=== PATIENT | female | born 1990 | race Caucasian/White ===

== ENCOUNTER 2016-12-18 08:12 | Emergency (ER) | payer OTHER ==
[2016-12-18 08:19] VITALS: BP 130/76; PULSE 81; RESP 20; TEMP 100.2
--- NOTE | 2016-12-18 08:34 | ED ---
General Adult HPI - General Chief complaint: ENT Stated complaint: Cough & pressure in head Time Seen by Provider: 12/18/16 08:18 Source: patient, RN notes reviewed Mode of arrival: ambulatory Limitations: no limitations - History of Present Illness Initial comments: Patient 25-year-old female who presents emergency room today with chief complaint of increased rhinorrhea and sore throat over the last 2 days. She does admit that hurts when she swallows. Does admit to feeling some pressure in her ears. Patient states that she has had cough production. She states she' s tried some [id number]-[id number] medications with her symptoms. She denies any other complaints. Patient denies any recent fever, chills, shortness of breath, chest pain, back pain, abdominal pain, nausea or vomiting, numbness or tingling , dysuria or hematuria, constipation or diarrhea, headaches or visual changes, or any other complaints. - Related Data Previous Rx's Medication Instructions Recorded Amoxicillin/Potassium Clav 1 each PO Q12HR #20 tab 12/18/16 [Augmentin 875-125 Tablet] Fluticasone Propionate [Flonase 1 - 2 spray EA NOSTRIL DAILY 5 Days 12/18/16 Allergy Relief] Loratadine [Claritin] 10 mg PO DAILY 20 Days 12/18/16 Allergies Allergy/AdvReac Type Severity Reaction Status Date / Time Sulfa (Sulfonamide AdvReac Swelling Verified 12/18/16 08:17 Antibiotics) Review of Systems ROS Statement: Those systems with pertinent positive or pertinent negative responses have been documented in the HPI. ROS Other: All systems not noted in ROS Statement are negative. Past Medical History Past Medical History: No Reported History History of Any Multi-Drug Resistant Organisms: None Reported Additional Past Surgical History / Comment(s): pe tubes Past Psychological History: Anxiety Smoking Status: Current some day smoker Past Alcohol Use History: Occasional Past Drug Use History: None Reported General Exam - General Exam Comments Initial Comments: General: The patient is awake and alert, in no distress, and does not appear acutely ill. Eye: Pupils are equal, round and reactive to light, extra-ocular movements are intact. No nystagmus. There is normal conjunctiva bilaterally. No signs of icterus. Ears, nose, mouth and throat: There are moist mucous membranes and no oral lesions. She does have tenderness over the frontal and maxillary sinuses. TMs are clear bilaterally. Neck: The neck is supple, there is no tenderness or JVD. Cardiovascular: There is a regular rate and rhythm. No murmur, rub or gallop is appreciated. Respiratory: Lungs are clear to auscultation, respirations are non-labored, breath sounds are equal. No wheezes, stridor, rales, or rhonchi. Musculoskeletal: Normal ROM, no tenderness. Strength 5/5. Sensation intact. Pulses equal bilaterally 2+. Neurological: A&O x 3. CN II-XII intact, There are no obvious motor or sensory deficits. Coordination appears grossly intact. Speech is normal. Skin: Skin is warm and dry and no rashes or lesions are noted. Psychiatric: Cooperative, appropriate mood & affect, normal judgment. Limitations: no limitations Course Vital Signs 12/18/16 08:14 Temperature 100.2 F H Pulse Rate 81 Respiratory 20 Rate Blood Pressure 130/76 O2 Sat by Pulse 98 Oximetry Disposition Clinical Impression: Acute sinusitis Disposition: HOME SELF-CARE Condition: Good Instructions: Sinusitis (ED) Additional Instructions: Please use medication as discussed. Please follow-up with family doctor in the next 2 days of symptoms have not improved. Please return to emergency room if the symptoms increase or worsen or for any other concerns. Prescriptions: Amoxicillin/Potassium Clav [Augmentin 875-125 Tablet] 1 each PO Q12HR #20 tab Fluticasone Propionate [Flonase Allergy Relief] 1 - 2 spray EA NOSTRIL DAILY 5 Days Loratadine [Claritin] 10 mg PO DAILY 20 Days Referrals: Julito Miranda MD [Primary Care Provider] - 1-2 days Time of Disposition: 08:32
== END 2016-12-18 08:48 | disposition home or self-care (01) ==
LOC: EC 08:12
DX: J01.90 Acute sinusitis, unspecified (principal); F17.200 Nicotine dependence, unspecified, uncomplicated; Z88.2 Allergy status to sulfonamides
CPT/HCPCS: 99283

== ENCOUNTER 2019-03-26 09:58 | Emergency (ER) | payer BC, OTHER ==
[2019-03-26 10:07] VITALS: BP 120/73; PULSE 74; RESP 18; TEMP 97.8
[2019-03-26] MEDS ORDERED: ACETAMINOPHEN TAB 325 MG TAB PO STA (10:45)
--- NOTE | 2019-03-26 10:53 | ED ---
General Adult HPI - General Source: patient, RN notes reviewed, old records reviewed Mode of arrival: ambulatory Limitations: no limitations <Yoandy Strickland - Last Filed: 03/26/19 10:58> <Karolyn Hollingsworthah Rhys - Last Filed: 03/26/19 23:35> - General Chief complaint: Fall Stated complaint: fall/head injury Time Seen by Provider: 03/26/19 10:11 - History of Present Illness Initial comments: 28-year-old female patient with no pertinent past medical history presents to ED for chief complaint fall last night. Patient put that last night as she was walking into her home she stumbled forward and hit the left side of her head on a door frame. Denies any trauma to face or eye. Patient denies falling to ground. Patient has a blood thinners. Patient denies a loss of consciousness. Patient felt fine after the initial trauma. Went to sleep. Patient reports that she woke up today at a mild left-sided temporal headache. Denies any nausea vomiting. Denies any changes in vision. Denies any upper or lower extremity weakness. Loss of consciousness. Denies any neck pain. Reports that this headache is mild, denies worse headache of life. Patient states that she called into work and must come in order to receive a work note. Systemic: Pt denies fatigue, fever/chills, rash. Pt denies weakness, night sweats, weight loss. Neuro: Pt denies visual disturbances, syncope or pre-syncope. HEENT: Pt denies ocular discharge or irritation, otalgia, rhinorrhea, pharyngitis or notable lymphadenopathy. Cardiopulmonary: Pt denies chest pain, SOB, heart palpitations, dyspnea on exertion. Abdominal/GI: Pt denies abdominal pain, n/v/d. : Pt denies dysuria, burning w/ urination, frequency/urgency. Denies new onset urinary or bowel incontinence. MSK: Pt denies myalgia, loss of strength or function in extremities. Neuro: Pt denies new onset weakness, paresthesias. (Yoandy Strickland) - Related Data Previous Rx's Medication Instructions Recorded Amoxic-Pot Clav 875-125Mg 1 tab PO Q12HR #20 tablet 03/17/17 [Augmentin 875-125] Allergies Allergy/AdvReac Type Severity Reaction Status Date / Time Sulfa (Sulfonamide AdvReac Swelling Verified 03/17/17 14:15 Antibiotics) Review of Systems ROS Other: All systems not noted in ROS Statement are negative. <Yoandy Strickland - Last Filed: 03/26/19 10:58> ROS Other: All systems not noted in ROS Statement are negative. <Edna Hollingsworth - Last Filed: 03/26/19 23:35> ROS Statement: Those systems with pertinent positive or pertinent negative responses have been documented in the HPI. Past Medical History Past Medical History: No Reported History History of Any Multi-Drug Resistant Organisms: None Reported Additional Past Surgical History / Comment(s): tubes Past Psychological History: Anxiety Smoking Status: Current some day smoker Past Alcohol Use History: Occasional Past Drug Use History: None Reported <Yoandy Strickland - Last Filed: 03/26/19 10:58> General Exam Limitations: no limitations <Yoandy Strickland - Last Filed: 03/26/19 10:58> - General Exam Comments Initial Comments: Constitutional: NAD, AOX3, Pt has pleasant affect. HEENT: NC/AT, trachea midline, neck supple, no lymphadenopathy. Posterior pharynx non erythematous, without exudates. External ears appear normal, without discharge. Mucous membranes moist. Right pupil irregular, reactive to light, left pupil PERRLA, EOM intact. IOP 25 bilaterally. There is no scleral icterus. No pallor noted. Cardiopulmonary: RRR, no murmurs, rubs or gallops, no JVD noted. Lungs CTAB in anterior and posterior garcia. No peripheral edema. Abdominal exam: Abdomen soft and non-distended. Abdomen non-tender to palpation in all 4 quadrants. Bowel sounds active in LLQ. No hepatosplenomegaly. No ecchymosis Neuro: CN II-XII intact. No nuchal rigidity. No raccon eyes, no ibarra sign, no hemotympanum. No cervical spinal tenderness. No hematoma or skin changes on skull. MSK: No posterior calf tenderness bilaterally, homans sign negative bilaterally. Posterior tibialis and radial pulse +2 bilaterally. Sensation intact in upper and lower extremities. Full active ROM in upper and lower extremities, 5/5 stregnth. (Yoandy Strickland) Course Vital Signs 03/26/19 10:02 Temperature 97.8 F Pulse Rate 74 Respiratory 18 Rate Blood Pressure 120/73 O2 Sat by Pulse 97 Oximetry Medical Decision Making <Yoandy Strickland - Last Filed: 03/26/19 10:58> <Edna Hollingsworth - Last Filed: 03/26/19 23:35> - Medical Decision Making 28-year-old female patient presents to ED with chief complaint of minor trauma to head yesterday, patient points that she has a mild left temporal headache today. Patient states that she called into work and must receive a work note her to return. Denies any chance of being . Patient vital signs stab le, afebrile. Physical exam displayed: Right pupil irregular, reactive to light, left pupil PERRLA, EOM intact. IOP 25 bilaterally. CN II-XII intact. No nuchal rigidity. No raccon eyes, no ibarra sign, no hemotympanum. No cervical spinal tenderness. No hematoma or skin changes on skull. Patient reports that this irregular pupil is normal for her and is always been this way. She reports that she is follow-up with senior android software engineer on multiple occasions and does wear glasses. Offered advanced imaging including CAT scan patient declined. Intraocular pressure revealed bilateral pressure of 25. Patient denies any changes in vision. States the vision is at baseline. Denies any pain in eye. Patient will be discharged, will follow up with primary care provider will be advised to follow-up with senior android software engineer for a mildly elevated intraocular pressure. Case discussed with Dr. Hollingsworth. (Yoandy Strickland) I was available for consultation in the emergency department. The history and physical exam were done by the midlevel provider. I was consulted for this patients care. I reviewed the case with the midlevel provider and based on their presentation of the patient, I agree with the assessment, medical decision making and plan of care as documented. Chart was dictated using App[employer]entive dictation software. Attempts were made to correct any dictation errors however some typographical errors may persist. (Edna Hollingsworth) Disposition Is patient prescribed a controlled substance at d/c from ED?: No <Yoandy Strickland - Last Filed: 03/26/19 10:58> <Edna Hollingsworth - Last Filed: 03/26/19 23:35> Clinical Impression: Fall Disposition: HOME SELF-CARE Condition: Stable Instructions (If sedation given, give patient instructions): Fall Prevention (ED) Additional Instructions: Follow-up with primary care provider tomorrow. Follow with senior android software engineer today. Return to ER if condition worsens in any way. Referrals: None,Stated [Primary Care Provider] - 1-2 days Preethi Larry MD [STAFF PHYSICIAN] - 1-2 days
== END 2019-03-26 11:07 | disposition home or self-care (01) ==
LOC: EC 09:58
DX: S09.90XA Unspecified injury of head, initial encounter (principal); H21.561 Pupillary abnormality, right eye; F17.200 Nicotine dependence, unspecified, uncomplicated; Z88.2 Allergy status to sulfonamides; Z53.20 Procedure and treatment not carried out because of patient's decision for unspecified reasons; W01.0XXA Fall on same level from slipping, tripping and stumbling without subsequent striking against object, initial encounter; Y93.01 Activity, walking, marching and hiking; Y92.009 Unspecified place in unspecified non-institutional (private) residence as the place of occurrence of the external cause
CPT/HCPCS: 99283

== ENCOUNTER 2020-06-16 08:51 | Emergency (ER) | payer BC, OTHER ==
[2020-06-16 08:54] VITALS: BP 120/68; PULSE 72; RESP 17; TEMP 98.6
--- NOTE | 2020-06-16 09:15 | ED ---
General Adult HPI - General Chief complaint: Back Pain/Injury Stated complaint: lower back pain Time Seen by Provider: 06/16/20 08:59 Source: patient, RN notes reviewed Mode of arrival: ambulatory Limitations: no limitations - History of Present Illness Initial comments: Patient is a pleasant 29-year-old female presenting to the emergency Department with low back discomfort. Onset of symptoms was yesterday morning. Symptoms progressed throughout the day. Symptoms are still present. Patient states symptoms are worse when going from sitting to standing position. Patient does have history of similar symptoms once around a year ago. Discomfort does radiate towards the left hip. Discomfort is lower back. No weakness. No loss of sensation. No incontinence or retention of bowel or bladder products. Patient denies any possible , states 0% chance. Patient denies urinary symptoms. - Related Data Previous Rx's Medication Instructions Recorded Amoxic-Pot Clav 875-125Mg 1 tab PO Q12HR #20 tablet 03/17/17 [Augmentin 875-125] Cyclobenzaprine [Flexeril] 10 mg PO TID PRN #12 tablet 06/16/20 predniSONE [Deltasone] 20 mg PO BID #10 tab 06/16/20 Allergies Allergy/AdvReac Type Severity Reaction Status Date / Time Sulfa (Sulfonamide AdvReac Swelling Verified 06/16/20 08:54 Antibiotics) Review of Systems ROS Statement: Those systems with pertinent positive or pertinent negative responses have been documented in the HPI. ROS Other: All systems not noted in ROS Statement are negative. Constitutional: Denies: fever Eyes: Denies: eye pain ENT: Denies: ear pain Respiratory: Denies: cough Cardiovascular: Denies: chest pain Endocrine: Denies: fatigue Gastrointestinal: Denies: abdominal pain, nausea, vomiting Genitourinary: Denies: dysuria Musculoskeletal: Reports: as per HPI, back pain Skin: Denies: rash Neurological: Denies: weakness, numbness Past Medical History Past Medical History: No Reported History History of Any Multi-Drug Resistant Organisms: None Reported Past Surgical History: Ear Surgery Additional Past Surgical History / Comment(s): tubes Past Psychological History: Anxiety Smoking Status: Current every day smoker Past Alcohol Use History: Occasional Past Drug Use History: None Reported General Exam Limitations: no limitations General appearance: alert, in no apparent distress, obese Eye exam: Present: normal appearance Neck exam: Present: normal inspection. Absent: tenderness Respiratory exam: Present: normal lung sounds bilaterally Cardiovascular Exam: Present: regular rate, normal rhythm Expanded Peripheral pulses: 2+: Dorsalis Pedis (R), Dorsalis Pedis (L) GI/Abdominal exam: Present: soft. Absent: distended, tenderness, pulsatile mass Extremities exam: Present: normal inspection Back exam: Present: tenderness (Mild tenderness lower lumbar spine), other (Straight leg raise positive on the left at 40) Neurological exam: Present: alert. Absent: motor sensory deficit Psychiatric exam: Present: normal affect, normal mood Skin exam: Present: normal color Course Vital Signs 06/16/20 08:52 Temperature 98.6 F Pulse Rate 72 Respiratory 17 Rate Blood Pressure 120/68 O2 Sat by Pulse 100 Oximetry Medical Decision Making - Medical Decision Making X-rays thought to be of limited benefit. Patient was offered however refuses. Disposition Clinical Impression: Low back pain Disposition: HOME SELF-CARE Condition: Stable Instructions (If sedation given, give patient instructions): Acute Low Back Pain (ED) Additional Instructions: Please do follow-up with primary care physician in the next couple days for recheck, number provided. Prescription for steroids and muscle relaxers have been sent to your pharmacy, [facility] on . Continue Motrin. Return for weakness, loss of control of bowel or bladder, worsening symptoms or other concerns or fevers. Prescriptions: predniSONE [Deltasone] 20 mg PO BID #10 tab Cyclobenzaprine [Flexeril] 10 mg PO TID PRN #12 tablet PRN Reason: Pain Is patient prescribed a controlled substance at d/c from ED?: No Referrals: Olga Minaya MD [STAFF PHYSICIAN] - 1-2 days Cheryl Cheatham MD [STAFF PHYSICIAN] - 1-2 days Time of Disposition: 09:14
== END 2020-06-16 09:24 | disposition home or self-care (01) ==
LOC: EC 08:51
DX: M54.5 Low back pain (principal); F17.200 Nicotine dependence, unspecified, uncomplicated

== ENCOUNTER 2022-02-08 07:38 | Emergency (ER) | payer OTHER ==
[2022-02-08 07:42] VITALS: TEMP 97.9
[2022-02-08] MEDS ORDERED: diphenhydrAMINE 50 MG/ML 1 ML VIAL IVP STA (08:35)
[2022-02-08] MEDS ORDERED: METOCLOPRAMIDE 5 MG/ML 2 ML VIAL IVP STA (08:35)
[2022-02-08] MEDS ORDERED: KETOROLAC 15 MG/ML 1 ML VIAL IVP STA (08:36)
--- NOTE | 2022-02-08 08:44 | ED ---
Headache HPI - General Chief Complaint: Headache Stated Complaint: eye pain, headaches Time Seen by Provider: 02/08/22 07:59 Mode of arrival: ambulatory Limitations: no limitations - History of Present Illness Initial Comments: This patient is a 31-year-old woman who presents with complaint of right sided retro-orbital headache. The patient states that this is been going on for a couple of months now. The patient states that she did recently see an fireworks inspector and was told that her optic nerve to the right eye is "pinched." The patient states she has not noted any change to her vision. 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 She has not noticed acute change. Patient denies neurologic symptoms. No fever or chills. No neck stiffness or pain. She denies any neurologic symptoms. The patient states she is currently awaiting an appointment with a neurologist, but that overnight the pain was a bit worse so she presents here to have some relief. MD Complaint: headache Onset/Timin -: month(s) Onset Description: gradual Location: right, retro-orbital Severity: moderate, severe Quality: aching Consistency: constant Improves With: nothing Worsens With: none Treatments Prior to Arrival: none - Related Data Home Medications Medication Instructions Recorded Confirmed Escitalopram [Lexapro] 10 mg PO DAILY 02/08/22 02/08/22 Rosuvastatin Calcium 5 mg PO DAILY 02/08/22 02/08/22 Allergies Allergy/AdvReac Type Severity Reaction Status Date / Time Sulfa (Sulfonamide AdvReac Swelling Verified 02/08/22 11:28 Antibiotics) Review of Systems ROS Statement: Those systems with pertinent positive or pertinent negative responses have been documented in the HPI. ROS Other: All systems not noted in ROS Statement are negative. Constitutional: Denies: fever, chills, weakness Eyes: Reports: as per HPI, eye pain. Denies: vision change ENT: Denies: ear pain, throat pain, hearing loss, epistaxis, congestion Respiratory: Denies: cough, dyspnea Cardiovascular: Denies: chest pain, syncope Gastrointestinal: Denies: nausea, vomiting Musculoskeletal: Denies: back pain Neurological: Reports: headache. Denies: weakness, numbness, paresthesias, confusion, vertigo Past Medical History Past Medical History: No Reported History History of Any Multi-Drug Resistant Organisms: None Reported Past Surgical History: Ear Surgery Additional Past Surgical History / Comment(s): tubes Past Psychological History: Anxiety Smoking Status: Vaper Past Alcohol Use History: Occasional Past Drug Use History: None Reported General Exam Limitations: no limitations General appearance: alert, in no apparent distress Head exam: Present: atraumatic, normocephalic Eye exam: Present: EOMI, other (Coloboma of the right eye). Absent: scleral icterus, conjunctival injection, nystagmus ENT exam: Present: normal oropharynx, mucous membranes moist, TM's normal bilaterally, normal external ear exam Neck exam: Present: normal inspection, full ROM. Absent: meningismus Neurological exam: Present: alert, oriented X3, CN II-XII intact. Absent: motor sensory deficit Psychiatric exam: Present: normal affect Skin exam: Present: warm, dry, intact, normal color. Absent: rash Course Vital Signs 02/08/22 02/08/22 02/08/22 07:40 10:38 13:22 Temperature 97.9 F Pulse Rate 69 55 L 60 Respiratory 20 18 18 Rate Blood Pressure 156/76 173/73 130/82 O2 Sat by Pulse 99 100 95 Oximetry - Reevaluation(s) Reevaluation #1: 02/08/22 11:23 Further history revealed that the patient believes she had a lumbar puncture performed at [facility] in around 2014. She states she was told she was making too much spinal fluid but she was not given any medication to take for that. Case was discussed with Dr. Mae who states patient needs CSF pressure checked. Medical Decision Making - Medical Decision Making This patient is a 31-year-old woman presenting with headache. The further history in the chart suggests that she probably has had some underlying pseudotumor cerebri. I did attempt to perform lumbar puncture but did not obtain fluid after one attempt. Given the difficult nature of the lumbar puncture, the patient was going to have lumbar puncture by the anesthesiologist, but the patient states that while she was waiting she received a call that she had an appointment scheduled with the neuro-sales associate key holder and she wants to follow with them instead. She understands importance of not letting this go on diagnosed and will return here if there is any problem with the follow-up plan or if any new symptoms develop. I did express that I still would rather keep her to have her pressure checked and be seen by neurology but she states she definitely wants to get in with the neuro-sales associate key holder and will then follow with neurology after. Disposition Clinical Impression: Pseudotumor cerebri syndrome Disposition: HOME SELF-CARE Condition: Good Instructions (If sedation given, give patient instructions): Idiopathic Intracranial Hypertension (ED) Is patient prescribed a controlled substance at d/c from ED?: No Referrals: Radha Mueller MD [Primary Care Provider] - 1-2 days Trevor Mae MD [STAFF PHYSICIAN] - 1-2 days
--- NOTE | 2022-02-08 09:12 | CT ---
EXAMINATION TYPE: CT brain wo con DATE OF EXAM: 02/08/2022 COMPARISON: None HISTORY: 31-year-old female Headache > 2 months; Pinched right optic nerve TECHNIQUE: Examination was done in axial plane without intravenous contrast. Coronal and sagittal r econstructions performed. CT DLP: 1172.7 mGycm Automated exposure control for dose reduction was used. FINDINGS: There is no evidence of acute intracranial hemorrhage, acute ischemic changes, mass, mass-effect, or extra-axial fluid collection. There is no effacement of cerebral sulci or basal subarachnoid cister ns. There is no hydrocephalus. There is no midline shift. Irving-white matter distinction is preserv ed. Partially empty sella incidentally noted. Slight focal protuberance along the posterior margin of the globe just lateral and inferior to the in sertion of the optic nerve, axial image 29 and sagittal image 38. Rightward nasal septal deviation. Paranasal sinuses and mastoid air cells well pneumatized. IMPRESSION: 1. No acute intracranial abnormality seen. 2. Partially empty sella may be an incidental finding. Correlate with patient demographics and sympto ms to exclude the possibility of pseudotumor cerebri. 3. Slight focal protuberance along the posterior margin of the globe, axial image 29. The clinical si gnificance is unclear. Correlate with findings on ophthalmologic exam. Possible posterior staphyloma.
[2022-02-08] MEDS ORDERED: LIDOCAINE 1% INJ 10MG/ML (20 ML MDV) SQ STA ×2 (10:22→10:24)
[2022-02-08 10:39] VITALS: RESP 18
[2022-02-08 13:23] VITALS: BP 130/82; PULSE 60
== END 2022-02-08 13:28 | disposition home or self-care (01) ==
LOC: EC 07:38
DX: G93.2 Benign intracranial hypertension (principal); F17.290 Nicotine dependence, other tobacco product, uncomplicated; F41.9 Anxiety disorder, unspecified; Z88.2 Allergy status to sulfonamides
CPT/HCPCS: 70450; 99284; 96374; 96375; J1200; J2765; J2001; J1885